=== PATIENT | female | born 1975 | race Caucasian/White ===

== ENCOUNTER 2017-12-21 14:26 | Inpatient (IN) | payer MEDICAID ==
[~2017-12-21 14:26] MED LIST: FERR-89 PO; FOLI1 PO; MULT-1239 PO; NALT50TA PO; NALT50TA6 PO; OLAN10TA22 PO; OLAN10TA3 PO; THIA100T67 PO
[2017-12-21] MEDS ORDERED: ZOLPIDEM TARTRATE 10 MG TABLET PO PRN (17:45)
[2017-12-21] MEDS ORDERED: LORazepam 2 MG/ML VIAL IVP PRN (17:45)
[2017-12-21] MEDS ORDERED: PNEUMOCOCCAL VACCINE POLYVALENT 0.5 ML VIAL [PPSV23] IM ONE (18:30)
[2017-12-21 18:54] VITALS: BP 114/60
[2017-12-21] MEDS ORDERED: OLANZapine 7.5 MG TABLET PO SCH (21:00)
[2017-12-22 08:08] VITALS: BP 100/54
[2017-12-22] MEDS: NICOTINE 21 MG/24 HOUR PATCH TD SCH (09:11)
[2017-12-22] MEDS: NALTREXONE HCL 50 MG TABLET PO SCH (09:11)
[2017-12-22] MEDS: BENZTROPINE MESYLATE 0.5 MG TABLET PO SCH ×2 (09:14→17:15)
[2017-12-22 16:06] VITALS: BP 135/85
[2017-12-22] MEDS: OLANZapine 5 MG TABLET PO PRN (17:15)
[2017-12-22] MEDS: OLANZapine 5 MG TABLET PO SCH (20:46)
[2017-12-22] MEDS: QUEtiapine FUMARATE 200 MG TABLET PO SCH (20:46)
[2017-12-22] MEDS: BENZTROPINE MESYLATE 2 MG TABLET PO SCH (21:14)
[2017-12-22] MEDS ORDERED: ACETAMINOPHEN 325 MG TABLET PO PRN (21:30)
[2017-12-22] MEDS ORDERED: IBUPROFEN 400 MG TABLET PO PRN (21:30)
[2017-12-22] MEDS ORDERED: DiphenhydrAMINE HCL 50 MG/ML VIAL ONE (22:33)
[2017-12-22 22:39] VITALS: BP 112/64
[2017-12-22] MEDS ORDERED: DiphenhydrAMINE HCL 50 MG/ML VIAL IM ONE (22:45)
[2017-12-23 00:35] VITALS: BP 148/100
[2017-12-23] MEDS: LORazepam 2 MG TABLET PO PRN ×2 (00:54→17:35)
[2017-12-23 01:36] VITALS: BP 138/90
[2017-12-23] MEDS: NALTREXONE HCL 50 MG TABLET PO SCH (09:34)
[2017-12-23] MEDS: BENZTROPINE MESYLATE 2 MG TABLET PO SCH ×2 (09:34→17:35)
[2017-12-23] MEDS: NICOTINE 21 MG/24 HOUR PATCH TD SCH (09:35)
[2017-12-23 16:06] VITALS: BP 118/73
[2017-12-23] MEDS: QUEtiapine FUMARATE 200 MG TABLET PO SCH (21:00)
[2017-12-23] MEDS: OLANZapine 5 MG TABLET PO SCH (21:29)
[2017-12-24 08:00] LABS: BASOPHILS % (AUTO) 0.4 % (0.0-2.0); EOSINOPHILS % (AUTO) 2.2 % (1.0-6.0); HEMATOCRIT 36.4 % (36-46); HEMOGLOBIN 12.1 g/dL (12.0-16.0); LYMPHOCYTES # (AUTO) 2.2 K/uL (1.0-4.8); LYMPHOCYTES % (AUTO) 32.3 % (22.0-44.0); MEAN CORPUSCULAR HEMOGLOBIN 26.8 pg (26.0-34.0); MEAN CORPUSCULAR HGB CONC 33.4 G/dL (31.0-37.0); MEAN CORPUSCULAR VOLUME 80 fL (80-100); MONOCYTES # (AUTO) 0.4 K/uL (0.1-1.0); NEUTROPHILS % (AUTO) 59.1 % (40.0-70.0); PLATELET COUNT (AUTO) 439 K/uL (150-450); RED BLOOD CELL COUNT(AUTO) 4.53 MIL/uL (4.00-5.20); RED CELL DISTRIBUTION WIDTH 20.4 % (11.5-14.5)
[2017-12-24 08:07] VITALS: BP 99/60
[2017-12-24 08:11] LABS: HEMOGLOBIN A1C 5.9 % (4.5-6.2)
[2017-12-24 08:22] LABS: ALANINE AMINOTRANSFERASE 20 U/L (12-78); ALBUMIN 3.3 g/dL (3.4-5.0); ALKALINE PHOSPHATASE 64 U/L (46-116); ANION GAP 8 mmol/L (8-16); ASPARTATE AMINOTRANSFERASE 14 U/L (15-37); BILIRUBIN,TOTAL 0.4 mg/dL (0.1-1.0); CALCIUM, TOTAL 9.4 mg/dL (8.8-10.5); CARBON DIOXIDE 27 mmol/L (22-29); CHLORIDE 104 mmol/L (98-107); CHOL/HDL RATIO 4.3 (3.9-5.7); CHOLESTEROL 172 mg/dL (131-200); CREATININE 1.08 mg/dL (0.60-1.30); GLOMERULAR FILTR. RATE CALC 55 mL/min (>60); GLUCOSE,RANDOM 79 mg/dL (70-110); HCG,QUANTITATIVE < 1 mIU/mL (0-6); HDL CHOLESTEROL 40 mg/dL (40-60); LDL CHOL (CALC.) 106 mg/dL (0-130); POTASSIUM 3.5 mmol/L (3.5-5.1); SODIUM SERUM 139 mmol/L (136-145); THYROID STIMULATING HORMONE 1.23 uIU/mL (0.36-3.74); TOTAL PROTEIN, SERUM 7.2 g/dL (6.4-8.2); TRIGLYCERIDES 129 mg/dL (15-150); UREA NITROGEN, BLOOD 13 mg/dL (7-18)
[2017-12-24] MEDS: NICOTINE 21 MG/24 HOUR PATCH TD SCH (08:24)
[2017-12-24] MEDS: LORazepam 2 MG TABLET PO PRN (08:25)
[2017-12-24] MEDS: BENZTROPINE MESYLATE 2 MG TABLET PO SCH (08:25)
[2017-12-24] MEDS: NALTREXONE HCL 50 MG TABLET PO SCH (08:25)
[2017-12-24] MEDS: OLANZapine 5 MG TABLET PO PRN (08:25)
[2017-12-24] MEDS ORDERED: GuaiFENesin/D-METHORPHAN [SUGAR-FREE] 200-20MG/10 ML SYRUP UDCUP PO PRN (13:30)
[2017-12-24] MEDS ORDERED: HydrOXYzine PAMOATE 50 MG CAPSULE PO PRN (13:30)
[2017-12-24] MEDS ORDERED: ACETAMINOPHEN 325 MG TABLET PO PRN (13:30)
[2017-12-24] MEDS ORDERED: PROMETHAZINE HCL 25 MG TABLET PO PRN (13:30)
[2017-12-24] MEDS ORDERED: MAGNESIUM HYDROXIDE SUSPENSION 30 ML UDCUP PO PRN (13:30)
[2017-12-24] MEDS ORDERED: LOPERAMIDE HCL 2 MG CAPSULE PO PRN (13:30)
[2017-12-24] MEDS ORDERED: MAG HYDROX/AL HYDROX/SIMETH ES 30 ML SUSPENSION UDCUP PO PRN (13:30)
[2017-12-24] MEDS ORDERED: OLAN5TAB27 PO (15:06)
[2017-12-24] MEDS ORDERED: NALT50TA PO (15:06)
[2017-12-24] MEDS ORDERED: BENZ2TAB10 PO (15:06)
[2017-12-24 16:13] VITALS: BP 109/81
[2017-12-24] MEDS ORDERED: THIAMINE HCL 100 MG TABLET PO SCH (17:00)
[2017-12-24] MEDS ORDERED: OLANZapine 10 MG TABLET PO SCH (21:00)
[2017-12-25] MEDS ORDERED: FOLIC ACID 1 MG TABLET PO SCH (09:00)
[2017-12-25] MEDS ORDERED: MULTIVITAMINS WITH MINERALS, THERAPEUTIC TABLET PO SCH (09:00)
== END 2017-12-24 17:00 | disposition home or self-care (01) | DRG 750 ==
LOC: B3A 17:44
PROVIDERS: ADMIT Psychiatry & Neurology Psychiatry; ATTEND Psychiatry & Neurology Psychiatry
DX: F25.9 Schizoaffective disorder, unspecified (principal); E11.9 Type 2 diabetes mellitus without complications; F32.9 Major depressive disorder, single episode, unspecified; D64.9 Anemia, unspecified; F17.210 Nicotine dependence, cigarettes, uncomplicated; F41.9 Anxiety disorder, unspecified; K21.9 Gastro-esophageal reflux disease without esophagitis; R00.0 Tachycardia, unspecified; Z88.0 Allergy status to penicillin; Z88.1 Allergy status to other antibiotic agents; Z71.6 Tobacco abuse counseling; Z91.19 Patient's noncompliance with other medical treatment and regimen
CPT/HCPCS: 83036; 84439; 84443; J1200; J2060

== ENCOUNTER 2018-01-08 16:16 | Inpatient (IN) | payer MEDICAID ==
[~2018-01-08] VITALS: Ht 160 cm; Wt 67.5 kg
[~2018-01-08 16:16] MED LIST changes: +BENZ2TAB10 PO; -FERR-89 PO; -FOLI1 PO; -MULT-1239 PO; -NALT50TA6 PO; -OLAN10TA3 PO; +OLAN5TAB27 PO; -THIA100T67 PO
[2018-01-08] MEDS ORDERED: GuaiFENesin/D-METHORPHAN [SUGAR-FREE] 200-20MG/10 ML SYRUP UDCUP PO PRN (16:45)
[2018-01-08] MEDS ORDERED: LOPERAMIDE HCL 2 MG CAPSULE PO PRN (16:45)
[2018-01-08] MEDS ORDERED: MAG HYDROX/AL HYDROX/SIMETH ES 30 ML SUSPENSION UDCUP PO PRN (16:45)
[2018-01-08] MEDS ORDERED: OLANZapine 5 MG RAPDIS TABLET PO PRN (16:45)
[2018-01-08] MEDS ORDERED: MAGNESIUM HYDROXIDE SUSPENSION 30 ML UDCUP PO PRN (16:45)
[2018-01-08] MEDS ORDERED: ACETAMINOPHEN 325 MG TABLET PO PRN (16:45)
[2018-01-08] MEDS ORDERED: HydrOXYzine PAMOATE 50 MG CAPSULE PO PRN (16:45)
[2018-01-08] MEDS ORDERED: PROMETHAZINE HCL 25 MG TABLET PO PRN (16:45)
[2018-01-08] MEDS ORDERED: ZOLPIDEM TARTRATE 10 MG TABLET PO PRN (16:45)
[2018-01-08] MEDS: THIAMINE HCL 100 MG TABLET PO SCH (17:03)
[2018-01-08] MEDS: BENZTROPINE MESYLATE 2 MG TABLET PO SCH (17:03)
[2018-01-08] MEDS ORDERED: LORazepam 2 MG/ML VIAL IM ONE (17:15)
[2018-01-08] MEDS ORDERED: PNEUMOCOCCAL VACCINE POLYVALENT 0.5 ML VIAL [PPSV23] IM ONE (17:15)
[2018-01-08] MEDS ORDERED: DiphenhydrAMINE HCL 50 MG/ML VIAL IM ONE (17:15)
[2018-01-08] MEDS ORDERED: FluPHENAZine HCL 2.5 MG/ML INJ IM ONE (17:15)
[2018-01-08 17:30] VITALS: BP 133/85
[2018-01-08] MEDS: OLANZapine 5 MG RAPDIS TABLET PO SCH (21:00)
[2018-01-08] MEDS: DIVALPROEX SODIUM 500 MG ER TABLET PO SCH (21:00)
[2018-01-09 07:00] VITALS: BP 128/82
[2018-01-09 08:21] LABS: BASOPHILS % (AUTO) 0.5 % (0.0-2.0); EOSINOPHILS % (AUTO) 1.8 % (1.0-6.0); HEMATOCRIT 35.5 % (36-46); LYMPHOCYTES # (AUTO) 1.9 K/uL (1.0-4.8); LYMPHOCYTES % (AUTO) 32.7 % (22.0-44.0); MEAN CORPUSCULAR HEMOGLOBIN 27.3 pg (26.0-34.0); MEAN CORPUSCULAR HGB CONC 33.8 G/dL (31.0-37.0); MEAN CORPUSCULAR VOLUME 81 fL (80-100); MONOCYTES # (AUTO) 0.4 K/uL (0.1-1.0); MONOCYTES % (AUTO) 7.3 % (2.0-9.0); NEUTROPHILS # (AUTO) 3.3 K/uL (1.8-7.7); NEUTROPHILS % (AUTO) 57.7 % (40.0-70.0); PLATELET COUNT (AUTO) 375 K/uL (150-450); RED CELL DISTRIBUTION WIDTH 19.6 % (11.5-14.5)
[2018-01-09 08:57] LABS: ALBUMIN 3.5 g/dL (3.4-5.0); BILIRUBIN,TOTAL 0.4 mg/dL (0.1-1.0); CALCIUM, TOTAL 8.9 mg/dL (8.8-10.5); CHOL/HDL RATIO 3.8 (3.9-5.7); CREATININE 1.03 mg/dL (0.60-1.30); FREE T4 (FREE THYROXINE) 0.87 ng/dL (0.76-1.46); POTASSIUM 3.7 mmol/L (3.5-5.1); THYROID STIMULATING HORMONE 3.4 uIU/mL (0.36-3.74); TOTAL PROTEIN, SERUM 7.1 g/dL (6.4-8.2)
[2018-01-09 09:01] LABS: HEMOGLOBIN A1C 6.1 % (4.5-6.2)
[2018-01-09 09:03] VITALS: BP 126/80
[2018-01-09] MEDS: NALTREXONE HCL 50 MG TABLET PO SCH (09:06)
[2018-01-09] MEDS: THIAMINE HCL 100 MG TABLET PO SCH ×2 (09:06→16:51)
[2018-01-09] MEDS: BENZTROPINE MESYLATE 2 MG TABLET PO SCH ×3 (09:06→16:51)
[2018-01-09] MEDS: FOLIC ACID 1 MG TABLET PO SCH (09:06)
[2018-01-09] MEDS: MULTIVITAMINS WITH MINERALS, THERAPEUTIC TABLET PO SCH (09:06)
[2018-01-09] MEDS ORDERED: IBUPROFEN 400 MG TABLET PO PRN (11:45)
[2018-01-09] MEDS ORDERED: ACETAMINOPHEN 325 MG TABLET PO PRN (11:45)
[2018-01-09] MEDS: LORazepam 2 MG TABLET PO PRN (16:51)
[2018-01-09 17:11] VITALS: BP 112/65
[2018-01-09] MEDS: OLANZapine 5 MG RAPDIS TABLET PO SCH (20:43)
[2018-01-09] MEDS: DIVALPROEX SODIUM 500 MG ER TABLET PO SCH (20:43)
[2018-01-10 08:08] VITALS: BP 118/72
[2018-01-10] MEDS: NALTREXONE HCL 50 MG TABLET PO SCH (08:59)
[2018-01-10] MEDS: FOLIC ACID 1 MG TABLET PO SCH (08:59)
[2018-01-10] MEDS: BENZTROPINE MESYLATE 2 MG TABLET PO SCH ×3 (08:59→17:04)
[2018-01-10] MEDS: OMEPRAZOLE 20 MG CAPSULE PO SCH (08:59)
[2018-01-10] MEDS: THIAMINE HCL 100 MG TABLET PO SCH ×2 (08:59→17:04)
[2018-01-10] MEDS: MULTIVITAMINS WITH MINERALS, THERAPEUTIC TABLET PO SCH (08:59)
[2018-01-10] MEDS: LORazepam 2 MG TABLET PO PRN ×2 (09:03→19:19)
[2018-01-10 16:00] VITALS: BP 105/63
[2018-01-10] MEDS ORDERED: BENZ2TAB10 PO (16:16)
[2018-01-10] MEDS ORDERED: OLAN5TAB30 PO (16:16)
[2018-01-10] MEDS ORDERED: DIVA500T52 PO ×2 (16:16→21:49)
[2018-01-10] MEDS ORDERED: NALT50TA PO (16:16)
[2018-01-10] MEDS: DIVALPROEX SODIUM 500 MG ER TABLET PO SCH (20:10)
[2018-01-10] MEDS ORDERED: OLANZapine 10 MG RAPDIS TABLET PO SCH (21:00)
[2018-01-11 08:21] VITALS: BP 96/60
[2018-01-11] MEDS: THIAMINE HCL 100 MG TABLET PO SCH (08:38)
[2018-01-11] MEDS: BENZTROPINE MESYLATE 2 MG TABLET PO SCH (08:38)
[2018-01-11] MEDS: MULTIVITAMINS WITH MINERALS, THERAPEUTIC TABLET PO SCH (08:38)
[2018-01-11] MEDS: NALTREXONE HCL 50 MG TABLET PO SCH (08:38)
[2018-01-11] MEDS: FOLIC ACID 1 MG TABLET PO SCH (08:39)
[2018-01-11] MEDS: OMEPRAZOLE 20 MG CAPSULE PO SCH (08:39)
== END 2018-01-11 14:36 | disposition home or self-care (01) | DRG 750 ==
LOC: B3A 16:54
PROVIDERS: ADMIT Psychiatry & Neurology Psychiatry; ATTEND Psychiatry & Neurology Psychiatry
DX: F20.0 Paranoid schizophrenia (principal); K73.9 Chronic hepatitis, unspecified; E11.9 Type 2 diabetes mellitus without complications; D64.9 Anemia, unspecified; F32.9 Major depressive disorder, single episode, unspecified; F17.200 Nicotine dependence, unspecified, uncomplicated; K21.9 Gastro-esophageal reflux disease without esophagitis; M54.9 Dorsalgia, unspecified; G89.29 Other chronic pain; Z59.9 Problem related to housing and economic circumstances, unspecified; Z91.19 Patient's noncompliance with other medical treatment and regimen; Z65.3 Problems related to other legal circumstances; Z88.0 Allergy status to penicillin; Z88.1 Allergy status to other antibiotic agents; Z88.8 Allergy status to other drugs, medicaments and biological substances; Z79.899 Other long term (current) drug therapy; Z28.21 Immunization not carried out because of patient refusal; Z71.6 Tobacco abuse counseling
CPT/HCPCS: 83036; 84439; 84443; 86592; 87081; J1200; J2060; J3490

== ENCOUNTER 2018-03-01 18:32 | Inpatient (IN) | payer MEDICAID, OTHER ==
[~2018-03-01] VITALS: Ht 157.5 cm; Wt 68.2 kg
[~2018-03-01 18:32] MED LIST changes: -BENZ2TAB10 PO; +DIVA500T52 PO; -OLAN10TA22 PO; -OLAN5TAB27 PO; +PALI156D IM
[2018-03-01] MEDS ORDERED: DiphenhydrAMINE HCL 50 MG/ML VIAL IM ONE (18:45)
[2018-03-01] MEDS ORDERED: LORazepam 2 MG/ML VIAL IM ONE ×2 (18:45→20:00)
[2018-03-01 19:11] LABS: APPEARANCE,URINE CLEAR (CLEAR); BILIRUBIN,URINE NEGATIVE (NEGATIVE); GLUCOSE, URINE (UA) NEGATIVE (NEGATIVE); KETONES,URINE NEGATIVE (NEGATIVE); LEUKOCYTE ESTERASE ,URINE NEGATIVE (NEGATIVE); NITRATE,URINE NEGATIVE (NEGATIVE); OCCULT BLOOD,URINE NEGATIVE (NEGATIVE); PROTEIN,URINE NEGATIVE (NEGATIVE); UROBILINOGEN,URINE 0.2 mg/dL (<=1.0)
[2018-03-01 19:11] LABS: BASOPHILS % (AUTO) 0.8 % (0.0-2.0); EOSINOPHILS % (AUTO) 0.4 % (1.0-6.0); HEMOGLOBIN 11.9 g/dL (12.0-16.0); LYMPHOCYTES # (AUTO) 1.5 K/uL (1.0-4.8); LYMPHOCYTES % (AUTO) 19.4 % (22.0-44.0); MEAN CORPUSCULAR HEMOGLOBIN 28.4 pg (26.0-34.0); MEAN CORPUSCULAR HGB CONC 33.9 G/dL (31.0-37.0); MEAN CORPUSCULAR VOLUME 84 fL (80-100); MONOCYTES # (AUTO) 0.7 K/uL (0.1-1.0); NEUTROPHILS # (AUTO) 5.5 K/uL (1.8-7.7); NEUTROPHILS % (AUTO) 70.4 % (40.0-70.0); PLATELET COUNT (AUTO) 514 K/uL (150-450); RED BLOOD CELL COUNT(AUTO) 4.19 MIL/uL (4.00-5.20); RED CELL DISTRIBUTION WIDTH 17.2 % (11.5-14.5)
[2018-03-01 19:16] LABS: AMPHET/METH SCREEN,URINE POSITIVE (NEGATIVE); BARBITURATE SCREEN, URINE NEGATIVE (NEGATIVE); BENZODIAZEPINES SCREEN,URINE POSITIVE (NEGATIVE); CANNABINOID SCREEN,URINE POSITIVE (NEGATIVE); COCAINE SCREEN,URINE NEGATIVE (NEGATIVE); METHADONE SCREEN, URINE NEGATIVE (NEGATIVE); OPIATE SCREEN,URINE NEGATIVE (NEGATIVE); PHENCYCLIDINE SCREEN,URINE NEGATIVE (NEGATIVE)
[2018-03-01 19:31] LABS: CREATININE 1.1 mg/dL (0.60-1.30); POTASSIUM 3.8 mmol/L (3.5-5.1)
[2018-03-01 19:35] LABS: ALBUMIN 3.5 g/dL (3.4-5.0); BILIRUBIN,TOTAL 0.2 mg/dL (0.1-1.0); TOTAL PROTEIN, SERUM 7.5 g/dL (6.4-8.2)
[2018-03-01] MEDS ORDERED: FluPHENAZine HCL 2.5 MG/ML INJ IM ONE (20:00)
[2018-03-01] MEDS ORDERED: MAGNESIUM HYDROXIDE SUSPENSION 30 ML UDCUP PO PRN (20:15)
[2018-03-01] MEDS ORDERED: ACETAMINOPHEN 325 MG TABLET PO PRN (20:15)
[2018-03-01] MEDS ORDERED: OLANZapine 5 MG RAPDIS TABLET PO PRN (20:15)
[2018-03-02 02:01] VITALS: BP 103/73
[2018-03-02 08:29] VITALS: BP 119/66
[2018-03-02 08:38] LABS: BASOPHILS % (AUTO) 0.9 % (0.0-2.0); EOSINOPHILS % (AUTO) 1.9 % (1.0-6.0); HEMATOCRIT 33.8 % (36-46); HEMOGLOBIN 11.5 g/dL (12.0-16.0); LYMPHOCYTES # (AUTO) 2.7 K/uL (1.0-4.8); LYMPHOCYTES % (AUTO) 40.7 % (22.0-44.0); MEAN CORPUSCULAR HEMOGLOBIN 28.5 pg (26.0-34.0); MEAN CORPUSCULAR VOLUME 84 fL (80-100); MONOCYTES # (AUTO) 0.6 K/uL (0.1-1.0); NEUTROPHILS # (AUTO) 3.2 K/uL (1.8-7.7); NEUTROPHILS % (AUTO) 47.5 % (40.0-70.0); PLATELET COUNT (AUTO) 483 K/uL (150-450); RED BLOOD CELL COUNT(AUTO) 4.02 MIL/uL (4.00-5.20)
[2018-03-02 08:49] LABS: HEMOGLOBIN A1C 6.3 % (4.5-6.2)
[2018-03-02] MEDS ORDERED: ACETAMINOPHEN 325 MG TABLET PO PRN (09:00)
[2018-03-02] MEDS ORDERED: IBUPROFEN 600 MG TABLET PO PRN (09:00)
[2018-03-02] MEDS ORDERED: INSULIN LISPRO 100 UNITS/ML SQ PRN (09:00)
[2018-03-02] MEDS ORDERED: GLUCAGON,HUMAN RECOMBINANT 1 MG VIAL IM PRN (09:00)
[2018-03-02 09:32] LABS: ALANINE AMINOTRANSFERASE 21 U/L (12-78); ALBUMIN 3.1 g/dL (3.4-5.0); ALKALINE PHOSPHATASE 44 U/L (46-116); ANION GAP 7 mmol/L (8-16); ASPARTATE AMINOTRANSFERASE 23 U/L (15-37); BILIRUBIN,TOTAL 0.3 mg/dL (0.1-1.0); CALCIUM, TOTAL 8.7 mg/dL (8.8-10.5); CARBON DIOXIDE 27 mmol/L (22-29); CHLORIDE 105 mmol/L (98-107); CHOL/HDL RATIO 4.5 (3.9-5.7); CHOLESTEROL 174 mg/dL (131-200); CREATININE 0.93 mg/dL (0.60-1.30); FREE T4 (FREE THYROXINE) 0.75 ng/dL (0.76-1.46); GLOMERULAR FILTR. RATE CALC > 60 mL/min (>60); GLUCOSE,RANDOM 82 mg/dL (70-110); HDL CHOLESTEROL 39 mg/dL (40-60); LDL CHOL (CALC.) 103 mg/dL (0-130); POTASSIUM 3.7 mmol/L (3.5-5.1); SODIUM SERUM 139 mmol/L (136-145); THYROID STIMULATING HORMONE 3.02 uIU/mL (0.36-3.74); TOTAL PROTEIN, SERUM 6.6 g/dL (6.4-8.2); TRIGLYCERIDES 162 mg/dL (15-150); UREA NITROGEN, BLOOD 16 mg/dL (7-18)
[2018-03-02 16:10] VITALS: BP 111/69
[2018-03-02 16:18] LABS: GLUCOMETER DEV NAME(LOC) BV3S 2; GLUCOSE,POINT OF CARE 135 MG/DL (70-110)
[2018-03-02] MEDS: BENZTROPINE MESYLATE 0.5 MG TABLET PO SCH (16:50)
[2018-03-02] MEDS: LORazepam 2 MG TABLET PO PRN (17:35)
[2018-03-02] MEDS: DIVALPROEX SODIUM 500 MG ER TABLET PO SCH (20:39)
[2018-03-03] MEDS ORDERED: PNEUMOCOCCAL VACCINE POLYVALENT 0.5 ML VIAL [PPSV23] IM ONE (06:00)
[2018-03-03 06:56] VITALS: BP 105/60
[2018-03-03] MEDS: BENZTROPINE MESYLATE 0.5 MG TABLET PO SCH ×2 (08:41→16:53)
[2018-03-03] MEDS: LORazepam 2 MG TABLET PO PRN ×2 (08:47→16:53)
[2018-03-03] MEDS: DIVALPROEX SODIUM 500 MG ER TABLET PO SCH (20:22)
[2018-03-04 06:23] LABS: GLUCOMETER DEV NAME(LOC) BV3S 2; GLUCOSE,POINT OF CARE 89 MG/DL (70-110)
[2018-03-04 06:59] VITALS: BP 110/70
[2018-03-04] MEDS: BENZTROPINE MESYLATE 0.5 MG TABLET PO SCH (08:18)
[2018-03-04] MEDS: LORazepam 2 MG TABLET PO PRN ×2 (08:41→16:21)
[2018-03-04] MEDS ORDERED: MAGNESIUM HYDROXIDE SUSPENSION 30 ML UDCUP PO PRN (11:15)
[2018-03-04] MEDS ORDERED: PROMETHAZINE HCL 25 MG TABLET PO PRN (11:15)
[2018-03-04] MEDS ORDERED: LOPERAMIDE HCL 2 MG CAPSULE PO PRN (11:15)
[2018-03-04] MEDS ORDERED: ACETAMINOPHEN 325 MG TABLET PO PRN (11:15)
[2018-03-04] MEDS ORDERED: GuaiFENesin/D-METHORPHAN [SUGAR-FREE] 200-20MG/10 ML SYRUP UDCUP PO PRN (11:15)
[2018-03-04] MEDS ORDERED: MAG HYDROX/AL HYDROX/SIMETH ES 30 ML SUSPENSION UDCUP PO PRN (11:15)
[2018-03-04] MEDS ORDERED: PALIPERIDONE 1.5 MG ER TABLET PO PRN (16:15)
[2018-03-04] MEDS: THIAMINE HCL 100 MG TABLET PO SCH (16:20)
[2018-03-04] MEDS: BENZTROPINE MESYLATE 2 MG TABLET PO SCH (17:00)
[2018-03-04 17:10] VITALS: BP 106/64
[2018-03-04] MEDS: DIVALPROEX SODIUM 500 MG ER TABLET PO SCH (20:42)
[2018-03-04] MEDS: PALIPERIDONE 3 MG ER TABLET PO SCH (20:42)
[2018-03-05 06:43] VITALS: BP 103/64
[2018-03-05 08:45] VITALS: BP 100/54
[2018-03-05] MEDS: MULTIVITAMINS WITH MINERALS, THERAPEUTIC TABLET PO SCH (09:10)
[2018-03-05] MEDS: BENZTROPINE MESYLATE 2 MG TABLET PO SCH ×2 (09:10→16:34)
[2018-03-05] MEDS: FOLIC ACID 1 MG TABLET PO SCH (09:11)
[2018-03-05] MEDS: THIAMINE HCL 100 MG TABLET PO SCH ×2 (09:11→16:35)
[2018-03-05] MEDS: LORazepam 2 MG TABLET PO PRN ×2 (09:11→16:35)
[2018-03-05] MEDS: NALTREXONE HCL 50 MG TABLET PO SCH (09:11)
[2018-03-05 16:22] VITALS: BP 100/60
[2018-03-05] MEDS: HydrOXYzine PAMOATE 50 MG CAPSULE PO PRN (16:35)
[2018-03-05] MEDS: DIVALPROEX SODIUM 500 MG ER TABLET PO SCH (20:23)
[2018-03-05] MEDS: PALIPERIDONE 3 MG ER TABLET PO SCH (20:23)
[2018-03-05] MEDS ORDERED: LORazepam 2 MG/ML VIAL ONE (21:04)
[2018-03-05] MEDS ORDERED: DiphenhydrAMINE HCL 50 MG/ML VIAL ONE (21:04)
[2018-03-05] MEDS ORDERED: FluPHENAZine HCL 2.5 MG/ML INJ IM ONE ×2 (21:04→21:15)
[2018-03-05] MEDS ORDERED: LORazepam 2 MG/ML VIAL IM ONE (21:15)
[2018-03-05] MEDS ORDERED: DiphenhydrAMINE HCL 50 MG/ML VIAL IM ONE (21:15)
[2018-03-06 06:53] VITALS: BP 101/66
[2018-03-06 08:30] VITALS: BP 110/68
[2018-03-06] MEDS: FOLIC ACID 1 MG TABLET PO SCH (09:09)
[2018-03-06] MEDS: MULTIVITAMINS WITH MINERALS, THERAPEUTIC TABLET PO SCH (09:09)
[2018-03-06] MEDS: BENZTROPINE MESYLATE 2 MG TABLET PO SCH ×3 (09:10→17:20)
[2018-03-06] MEDS: LORazepam 2 MG TABLET PO PRN (09:10)
[2018-03-06] MEDS: NALTREXONE HCL 50 MG TABLET PO SCH (09:13)
[2018-03-06] MEDS: THIAMINE HCL 100 MG TABLET PO SCH ×2 (09:17→17:20)
[2018-03-06 16:51] VITALS: BP 105/62
[2018-03-06] MEDS: PALIPERIDONE 3 MG ER TABLET PO SCH (20:47)
[2018-03-06] MEDS: DIVALPROEX SODIUM 500 MG ER TABLET PO SCH (20:47)
[2018-03-07 07:08] LABS: GLUCOMETER DEV NAME(LOC) BV3S 2; GLUCOSE,POINT OF CARE 73 MG/DL (70-110)
[2018-03-07] MEDS: MULTIVITAMINS WITH MINERALS, THERAPEUTIC TABLET PO SCH (09:00)
[2018-03-07] MEDS: THIAMINE HCL 100 MG TABLET PO SCH ×2 (09:00→16:25)
[2018-03-07] MEDS: FOLIC ACID 1 MG TABLET PO SCH (09:00)
[2018-03-07] MEDS: BENZTROPINE MESYLATE 2 MG TABLET PO SCH ×3 (09:00→16:25)
[2018-03-07] MEDS: NALTREXONE HCL 50 MG TABLET PO SCH (09:00)
[2018-03-07] MEDS: LORazepam 2 MG TABLET PO PRN (13:55)
[2018-03-07 16:00] VITALS: BP 103/60
[2018-03-07] MEDS: HydrOXYzine PAMOATE 50 MG CAPSULE PO PRN (16:24)
[2018-03-07] MEDS ORDERED: DiphenhydrAMINE HCL 50 MG/ML VIAL IM ONE (16:45)
[2018-03-07] MEDS ORDERED: FluPHENAZine HCL 2.5 MG/ML INJ IM ONE ×2 (16:45→16:47)
[2018-03-07] MEDS ORDERED: LORazepam 2 MG/ML VIAL IM ONE (16:45)
[2018-03-07] MEDS ORDERED: LORazepam 2 MG/ML VIAL ONE (16:46)
[2018-03-07] MEDS ORDERED: DiphenhydrAMINE HCL 50 MG/ML VIAL ONE (16:46)
[2018-03-07 20:00] VITALS: BP 100/66
[2018-03-07] MEDS: DIVALPROEX SODIUM 500 MG ER TABLET PO SCH (21:00)
[2018-03-07] MEDS: PALIPERIDONE 6 MG ER TABLET PO SCH (21:00)
[2018-03-08 02:29] VITALS: BP 118/74
[2018-03-08 06:28] LABS: GLUCOMETER DEV NAME(LOC) BV3S 2; GLUCOSE,POINT OF CARE 117 MG/DL (70-110)
[2018-03-08] MEDS: THIAMINE HCL 100 MG TABLET PO SCH ×2 (09:56→16:56)
[2018-03-08] MEDS: MULTIVITAMINS WITH MINERALS, THERAPEUTIC TABLET PO SCH (09:56)
[2018-03-08] MEDS: NALTREXONE HCL 50 MG TABLET PO SCH (09:56)
[2018-03-08] MEDS: FOLIC ACID 1 MG TABLET PO SCH (09:56)
[2018-03-08] MEDS: BENZTROPINE MESYLATE 2 MG TABLET PO SCH ×3 (09:56→16:56)
[2018-03-08] MEDS ORDERED: PALIPERIDONE PALMITATE 234 MG/1.5 ML SYRINGE IM ONE (16:00)
[2018-03-08 16:13] VITALS: BP 115/69
[2018-03-08] MEDS: LORazepam 2 MG TABLET PO PRN (16:56)
[2018-03-08] MEDS: PALIPERIDONE 6 MG ER TABLET PO SCH (20:11)
[2018-03-08] MEDS: DIVALPROEX SODIUM 500 MG ER TABLET PO SCH (20:11)
[2018-03-08] MEDS: HydrOXYzine PAMOATE 50 MG CAPSULE PO PRN (21:15)
[2018-03-09 00:53] VITALS: BP 110/61
[2018-03-09] MEDS: LORazepam 2 MG TABLET PO PRN (00:53)
[2018-03-09] MEDS: HydrOXYzine PAMOATE 50 MG CAPSULE PO PRN (01:27)
[2018-03-09 06:00] VITALS: BP 108/65
[2018-03-09 06:58] LABS: GLUCOMETER DEV NAME(LOC) BV3S 2; GLUCOSE,POINT OF CARE 72 MG/DL (70-110)
[2018-03-09 08:00] VITALS: BP 108/65
[2018-03-09 11:30] VITALS: BP 93/61
[2018-03-09] MEDS: BENZTROPINE MESYLATE 2 MG TABLET PO SCH ×2 (11:33→16:28)
[2018-03-09] MEDS: THIAMINE HCL 100 MG TABLET PO SCH ×2 (11:33→16:28)
[2018-03-09] MEDS: MULTIVITAMINS WITH MINERALS, THERAPEUTIC TABLET PO SCH (11:33)
[2018-03-09] MEDS: NALTREXONE HCL 50 MG TABLET PO SCH (11:34)
[2018-03-09] MEDS: FOLIC ACID 1 MG TABLET PO SCH (11:34)
[2018-03-09 16:38] LABS: GLUCOMETER DEV NAME(LOC) BV3S 2; GLUCOSE,POINT OF CARE 71 MG/DL (70-110)
[2018-03-09 16:38] LABS: GLUCOMETER DEV NAME(LOC) BV3S 2; GLUCOSE,POINT OF CARE 104 MG/DL (70-110)
[2018-03-09 18:41] VITALS: BP 103/70
[2018-03-09] MEDS: PALIPERIDONE 6 MG ER TABLET PO SCH (21:16)
[2018-03-09] MEDS: DIVALPROEX SODIUM 500 MG ER TABLET PO SCH (21:17)
[2018-03-10] VITALS (8 sets, daily range): BP systolic 80–108; BP diastolic 43–73
[2018-03-10 07:18] LABS: GLUCOMETER DEV NAME(LOC) BV3S 2; GLUCOSE,POINT OF CARE 75 MG/DL (70-110)
[2018-03-10] MEDS: FOLIC ACID 1 MG TABLET PO SCH (08:23)
[2018-03-10] MEDS: MULTIVITAMINS WITH MINERALS, THERAPEUTIC TABLET PO SCH (08:23)
[2018-03-10] MEDS: BENZTROPINE MESYLATE 2 MG TABLET PO SCH ×2 (08:23→12:38)
[2018-03-10] MEDS: NALTREXONE HCL 50 MG TABLET PO SCH (08:23)
[2018-03-10] MEDS: THIAMINE HCL 100 MG TABLET PO SCH (08:23)
[2018-03-10] MEDS ORDERED: PALI6 PO (12:52)
[2018-03-12] MEDS ORDERED: PALIPERIDONE PALMITATE 156 MG/ML SYRINGE IM ONE (09:00)
== END 2018-03-10 19:03 | disposition home or self-care (01) | DRG 750 ==
LOC: EMS 18:35 → B3A 03-02 00:35
PROVIDERS: ADMIT Psychiatry & Neurology Psychiatry; ATTEND Psychiatry & Neurology Psychiatry
DX: F20.0 Paranoid schizophrenia (principal); F15.10 Other stimulant abuse, uncomplicated; Z78.1 Physical restraint status; E11.9 Type 2 diabetes mellitus without complications; F29 Unspecified psychosis not due to a substance or known physiological condition; F31.9 Bipolar disorder, unspecified; D64.9 Anemia, unspecified; F17.200 Nicotine dependence, unspecified, uncomplicated; M54.9 Dorsalgia, unspecified; F12.10 Cannabis abuse, uncomplicated; G89.4 Chronic pain syndrome; K21.9 Gastro-esophageal reflux disease without esophagitis; Z88.1 Allergy status to other antibiotic agents; Z88.8 Allergy status to other drugs, medicaments and biological substances; Z91.19 Patient's noncompliance with other medical treatment and regimen; Z79.899 Other long term (current) drug therapy; Z28.21 Immunization not carried out because of patient refusal
CPT/HCPCS: 83036; 84439; 84443; 87081; 96372; 99285; J1200; J2060; J3490

== ENCOUNTER 2018-03-09 07:17 | Emergency (ER) | payer MEDICAID, OTHER ==
[~2018-03-09] VITALS: Ht 157.5 cm; Wt 68.2 kg
[2018-03-09] MEDS ORDERED: LORazepam 2 MG/ML VIAL IM ONE (08:45)
[2018-03-09] MEDS ORDERED: DiphenhydrAMINE HCL 50 MG/ML VIAL IM ONE (08:45)
[2018-03-09 09:56] VITALS: BP 104/65
[2018-03-10] MEDS ORDERED: PALI6 PO (12:52)
== END 2018-03-09 10:49 | disposition home or self-care (01) ==
LOC: EMS 07:17
DX: S00.12XA Contusion of left eyelid and periocular area, initial encounter (principal); F99 Mental disorder, not otherwise specified; F17.210 Nicotine dependence, cigarettes, uncomplicated; F31.9 Bipolar disorder, unspecified; E11.9 Type 2 diabetes mellitus without complications; Z88.0 Allergy status to penicillin; Z88.8 Allergy status to other drugs, medicaments and biological substances; W18.09XA Striking against other object with subsequent fall, initial encounter; Y93.89 Activity, other specified; Y92.89 Other specified places as the place of occurrence of the external cause; Y99.8 Other external cause status
CPT/HCPCS: 70450; 72125; 96372; 99285; 99406; J1200; J2060; 99284

== ENCOUNTER 2018-03-10 12:22 | Emergency (ER) | payer OTHER ==
[~2018-03-10] VITALS: Ht 167.6 cm; Wt 72.0 kg
[2018-03-10] MEDS ORDERED: PALI6 PO (12:52)
[2018-03-10] MEDS ORDERED: SODIUM CHLORIDE 0.9% 1,000 ML IV ONE ×2 (13:00→14:30)
[2018-03-10 13:11] LABS: BASOPHILS % (AUTO) 1.4 % (0.0-2.0); EOSINOPHILS % (AUTO) 2.2 % (1.0-6.0); HEMATOCRIT 40.8 % (36-46); HEMOGLOBIN 13.6 g/dL (12.0-16.0); LYMPHOCYTES # (AUTO) 2.2 K/uL (1.0-4.8); LYMPHOCYTES % (AUTO) 49.5 % (22.0-44.0); MEAN CORPUSCULAR HGB CONC 33.3 G/dL (31.0-37.0); MEAN CORPUSCULAR VOLUME 84 fL (80-100); MONOCYTES # (AUTO) 0.3 K/uL (0.1-1.0); MONOCYTES % (AUTO) 7.1 % (2.0-9.0); NEUTROPHILS # (AUTO) 1.8 K/uL (1.8-7.7); NEUTROPHILS % (AUTO) 39.8 % (40.0-70.0); PLATELET COUNT (AUTO) 364 K/uL (150-450); RED BLOOD CELL COUNT(AUTO) 4.85 MIL/uL (4.00-5.20); RED CELL DISTRIBUTION WIDTH 16.1 % (11.5-14.5)
[2018-03-10 13:25] LABS: CALCIUM, TOTAL 9.5 mg/dL (8.8-10.5); CREATININE 1.27 mg/dL (0.60-1.30); POTASSIUM 3.9 mmol/L (3.5-5.1)
[2018-03-10 14:04] LABS: GLUCOSE,POINT OF CARE 135 MG/DL (70-110)
[2018-03-10 15:44] VITALS: BP 100/67
== END 2018-03-10 16:24 | disposition other institution (70) ==
LOC: EMS 12:25
DX: E86.0 Dehydration (principal); F31.9 Bipolar disorder, unspecified; I95.9 Hypotension, unspecified; R19.7 Diarrhea, unspecified; E11.9 Type 2 diabetes mellitus without complications; F17.210 Nicotine dependence, cigarettes, uncomplicated; F12.90 Cannabis use, unspecified, uncomplicated; F15.90 Other stimulant use, unspecified, uncomplicated; Z88.0 Allergy status to penicillin; Z88.8 Allergy status to other drugs, medicaments and biological substances
CPT/HCPCS: 36415; 80048; 80164; 82962; 85025; 93005; 96360; 96361; 99285; J7030

== ENCOUNTER 2018-03-22 12:29 | Emergency (ER) | payer OTHER ==
[~2018-03-22] VITALS: Ht 157.5 cm; Wt 68.2 kg
[~2018-03-22 12:29] MED LIST changes: -DIVA500T52 PO; -NALT50TA PO; -PALI156D IM; +PALI6 PO
[2018-03-22 13:05] LABS: BASOPHILS % (AUTO) 0.2 % (0.0-2.0); EOSINOPHILS % (AUTO) 0.3 % (1.0-6.0); HEMATOCRIT 38.8 % (36-46); HEMOGLOBIN 12.8 g/dL (12.0-16.0); LYMPHOCYTES # (AUTO) 1.7 K/uL (1.0-4.8); LYMPHOCYTES % (AUTO) 13.9 % (22.0-44.0); MEAN CORPUSCULAR HEMOGLOBIN 28.4 pg (26.0-34.0); MEAN CORPUSCULAR HGB CONC 33.1 G/dL (31.0-37.0); MEAN CORPUSCULAR VOLUME 86 fL (80-100); MONOCYTES # (AUTO) 0.6 K/uL (0.1-1.0); MONOCYTES % (AUTO) 4.7 % (2.0-9.0); NEUTROPHILS # (AUTO) 9.7 K/uL (1.8-7.7); NEUTROPHILS % (AUTO) 80.9 % (40.0-70.0); PLATELET COUNT (AUTO) 352 K/uL (150-450); RED BLOOD CELL COUNT(AUTO) 4.52 MIL/uL (4.00-5.20); RED CELL DISTRIBUTION WIDTH 17.4 % (11.5-14.5)
[2018-03-22 13:09] LABS: ANION GAP 12 mmol/L (8-16); CALCIUM, TOTAL 9.7 mg/dL (8.8-10.5); CARBON DIOXIDE 23 mmol/L (22-29); CHLORIDE 104 mmol/L (98-107); CREATININE 1.22 mg/dL (0.60-1.30); GLOMERULAR FILTR. RATE CALC 48 mL/min (>60); GLUCOSE,RANDOM 150 mg/dL (70-110); POTASSIUM 3.7 mmol/L (3.5-5.1); SODIUM SERUM 139 mmol/L (136-145); UREA NITROGEN, BLOOD 22 mg/dL (7-18)
[2018-03-22 13:15] LABS: ALANINE AMINOTRANSFERASE 22 U/L (12-78); ALBUMIN 3.8 g/dL (3.4-5.0); ALKALINE PHOSPHATASE 62 U/L (46-116); ASPARTATE AMINOTRANSFERASE 13 U/L (15-37); BILIRUBIN,TOTAL 0.3 mg/dL (0.1-1.0); TOTAL PROTEIN, SERUM 7.7 g/dL (6.4-8.2)
[2018-03-22 14:28] LABS: GLUCOSE,POINT OF CARE 126 MG/DL (70-110)
[2018-03-22 15:56] VITALS: BP 119/77
== END 2018-03-22 16:24 | disposition home or self-care (01) ==
LOC: EMS 12:30
DX: F25.9 Schizoaffective disorder, unspecified (principal); F31.9 Bipolar disorder, unspecified; E11.9 Type 2 diabetes mellitus without complications; F12.90 Cannabis use, unspecified, uncomplicated; F15.90 Other stimulant use, unspecified, uncomplicated; F17.210 Nicotine dependence, cigarettes, uncomplicated; Z88.0 Allergy status to penicillin; Z88.1 Allergy status to other antibiotic agents; Z88.5 Allergy status to narcotic agent; Z88.6 Allergy status to analgesic agent
CPT/HCPCS: 36415; 80053; 82962; 85025; 99284; 99406; G0480